=== PATIENT | female | born 1990 | race African-American/Black ===

== ENCOUNTER 2017-10-23 13:14 | Emergency (ER) ==
[2017-10-23 13:27] VITALS: BP 115/77; TEMP 97.7; BMI 23.8
--- NOTE | 2017-10-23 13:31 | ED.PDOC ---
General ED Provider: Dr. JOSSELYN SCHNEIDER Chief Complaint: Vaginal Bleeding Stated Complaint: VAGINAL BLEEDING Time Seen by Physician: 13:29 ( SEE WITH EVANS FROM LAB AT ALL TIMES ) Mode of Arrival: Walk-In Information Source: Patient Exam Limitations: No limitations Nursing and Triage Documentation Reviewed and Agree: Yes Reviewed sepsis parameters & appropriate labs ordered?: Yes System Inflammatory Response Syndrome: Not Applicable Sepsis Protocol: For patient's 13 years and over: Temp is 96.8 and below OR 101 and greater Pulse >90 BPM Resp >20/minute Acutely Altered Mental Status Are patient's symptoms suggestive of a new infection, such as: -Pneumonia -Skin, Soft Tissue -Endocarditis -UTI -Bone, Joint Infection -Implantable Device -Acute Abdominal Infection -Wound Infection -Meningitis -Blood Stream Catheter Infection -Unknown System Inflammatory Response Syndrome: Not Applicable Complaint Exam - UTI Female Complaint/Exam : 3 Para: 3 Hx Total # of Abortions (Spontaneous & Elective): 0 - Complaint/Exam Onset/Duration: NOTED SCANT AMOU NT OF BLEEDING TODAY AHOME PREG ON Sep POSTIVE Symptoms Are: Still present Timing: Intermittent Initial Severity: Mild Current Severity: None Location of Pain: Reports: None Aggravating: Reports: None Alleviating: Reports: None Associated Signs and Symptoms: Reports: Vaginal bleeding (SCANT ). Denies: Diaphoresis, Back pain, Fever, Hematuria, Dysuria, Constipation, Blood in stool , Rectal pain, Appetite change, Nausea, Vomiting, Decreased urine output, Increased urine frequency, Increased thirst, Decreased activity, Lethargy, Abdominal Pain, Bubble bath use, Vaginal discharge, Genital swelling, Genital blisters, Retained foreign body Ectopic Risk Factors: Reports: None Ovarian Torsion Risk Factors: Reports: None Surgical Obstruction Risk Factors: Reports: None RH Status: Unknown Related Surgical History: Reports: None Abdominal Findings: Present: None Review of Systems - Review Of Systems Constitutional: Reports: No symptoms Eyes: Reports: No symptoms Ears, Nose, Mouth, Throat: Reports: No symptoms Respiratory: Reports: No symptoms Cardiac: Reports: No symptoms GI: Reports: No symptoms : Reports: Other (VAGINAL BLEEDING) Musculoskeletal: Reports: No symptoms Skin: Reports: No symptoms Neurological: Reports: No symptoms Endocrine: Reports: No symptoms Hematologic/Lymphatic: Reports: No symptoms All Other Systems: Reviewed and Negative Past Medical History - Past Medical History Previously Healthy: Yes Endocrine: Reports: None Cardiovascular: Reports: None Respiratory: Reports: None Hematological: Reports: None Gastrointestinal: Reports: None Genitourinary: Reports: None Neuro/Psych: Reports: None Musculoskeletal: Reports: None Cancer: Reports: None Last Menstrual Period: 09/20/17 - Surgical History General Surgical History: Reports: None - Family History Family History: Reports: None - Social History Smoking Status: Never smoker Hx Substance Use: No Alcohol Screening: None Physical Exam - Physical Exam Appearance: Well-appearing, No pain distress, Well-nourished Eyes: ARYAN, EOMI, Conjunctiva clear ENT: Ears normal, Nose normal, Oropharynx normal Respiratory: Airway patent, Breath sounds clear, Breath sounds equal, Respirations nonlabored Cardiovascular: RRR, Pulses normal, No rub, No murmur GI/: Soft, Nontender, No masses, Bowel sounds normal, No Organomegaly Musculoskeletal: Normal strength, ROM intact, No edema, No calf tenderness Skin: Warm, Dry, Normal color Neurological: Sensation intact, Motor intact, Reflexes intact, Cranial nerves intact, Alert, Oriented Psychiatric: Affect appropriate, Mood appropriate Critical Care Note - Critical Care Note Total Time (mins): 0 Course - Course Hematology/Chemistry: 10/23/17 13:30 Orders, Labs, Meds: Lab Review 10/23/17 10/23/17 10/23/17 13:30 13:30 13:30 WBC 6.63 RBC 4.40 Hgb 12.9 Hct 38.6 MCV 87.7 MCH 29.3 MCHC 33.4 RDW Coeff of Michael 12.4 Plt Count 280 Immature Gran % (Auto) 0.2 Neut % (Auto) 56.6 Lymph % (Auto) 32.4 Roane % (Auto) 7.8 Eos % (Auto) 2.7 Baso % (Auto) 0.3 Immature Gran # (Auto) 0.0 Neut # (Auto) 3.8 Lymph # (Auto) 2.2 Roane # (Auto) 0.5 Eos # (Auto) 0.2 Baso # (Auto) 0.0 PT 10.1 INR 0.99 APTT 27.3 Serum , Qual Negative Orders Category Date Time Status CBC W/ AUTO DIFF Stat LAB 10/23/17 13:30 Completed PARTIAL THROMBOPLASTIN TIME Stat LAB 10/23/17 13:30 Completed PT WITH INR Stat LAB 10/23/17 13:30 Completed SERUM Stat LAB 10/23/17 13:30 Completed Vital Signs: Temp Pulse Resp BP Pulse Ox 10/23/17 13:16 97.7 F 86 16 115/77 99 Departure - Departure Time of Disposition: 14:10 Disposition: HOME SELF-CARE Discharge Problem: Bleeding from vagina, Dysfunctional uterine bleeding Instructions: Dysfunctional Uterine Bleeding (ED) Condition: Good Pt referred to PMD for follow-up: Yes IPMP verified?: No Additional Instructions: Please call your Family Physician as soon as possible to schedule a follow-up appointment. Allergies/Adverse Reactions: Allergies No Known Allergies Allergy (Unverified 10/23/17 13:19) Home Medications: Ambulatory Orders 1 [No Reported Medications] 10/23/17 Disposition Discussed With: Patient
== END 2017-10-23 14:24 | disposition home or self-care (01) ==
LOC: ED 13:14
DX: N93.8 Other specified abnormal uterine and vaginal bleeding (principal)
CPT/HCPCS: 36415; 84703; 85025; 85610; 85730; 99283

== ENCOUNTER 2018-04-22 16:49 | Emergency (ER) ==
[2018-04-22 16:55] VITALS: BP 117/75; TEMP 98.4; BMI 26.3
--- NOTE | 2018-04-22 18:06 | ED.PDOC ---
General ED Provider: Dr. CELI CADE Chief Complaint: Earache Stated Complaint: Lt ear ache and dental pain from cavity Time Seen by Physician: 17:30 Mode of Arrival: Walk-In Information Source: Patient Nursing and Triage Documentation Reviewed and Agree: Yes Does patient meet sepsis criteria?: No System Inflammatory Response Syndrome: Not Applicable Sepsis Protocol: For patient's 13 years and over: Temp is 96.8 and below OR 101 and greater Pulse >90 BPM Resp >20/minute Acutely Altered Mental Status Are patient's symptoms suggestive of a new infection, such as: -Pneumonia -Skin, Soft Tissue -Endocarditis -UTI -Bone, Joint Infection -Implantable Device -Acute Abdominal Infection -Wound Infection -Meningitis -Blood Stream Catheter Infection -Unknown EENT Complaint Exam - Ear Complaint/Exam Onset/Duration: 2 days Symptoms Are: Still present Timing: Constant Initial Severity: Moderate Current Severity: Moderate Character: Reports: Dull pain, Aching pain Aggravating: Reports: None Alleviating: Reports: None Associated Signs and Symptoms: Denies: Ear trauma, Ear swelling, Discharge, Fever, Hearing loss, Bleeding, Sore throat, Headache, URI symptoms, Foreign body sensation, Rash, Pain to external ear, Pain to external face Related History: Denies: Similar Episode Ear Surgical History: None Vesicles to External Pinna: No Vesicles to Tragus: No TMJ Tenderness: None Mastoid Tenderness: None Tragal Tenderness: None External Canal: Normal Material in Canal: Absent: Cerumen, Discharge, Blood, Foreign body Tympanic Membrane: Bulging, Dullness Differential Diagnoses: Serous Otitis - Dental/Oral Complaint/Exam Mechanism of Injury: No known trauma Onset/Duration: 12 week Symptoms Are: Still present Timing: Constant Initial Severity: Moderate Current Severity: Moderate Location: Lt Lower gum line Character: Reports: Aching, Throbbing Aggravating: Reports: Cold, Chewing Alleviating: Reports: None Associated Signs and Symptoms: Denies: Swelling, Discharge, Fever, Foul odor, Foul taste in mouth Related History: Reports: Similar episode Cardiac Risk Factors: Reports: None Tooth Findings: Present: Percussion tenderness, Gross decay, Gross caries, Abcess Cervical Lymphadenopathy Present: No Facial Swelling Present: No Bleeding Present: No Oropharynx Findings: Absent: Clots, Active bleeding Septal Hematoma: No Foreign Body Present: No Dysphagia Present: No Drooling Present: No Asymmetrical Tonsillar Swelling Present: No Uvula Midline: Yes Brittani-tonsillar Fluctuence: No Trismus Present: No Palatal Petechiae Present: No Scarlatinaform Rash Present: No Lesions: Absent: Lip, Gums, Tongue, Buccal Mucosa, Pharynx Exanthem: Absent: Lip, Gums, Tongue, Buccal Mucosa, Pharynx Vesicles: Absent: Lip, Gums, Tongue, Buccal Mucosa, Pharynx Differential Diagnoses: Dental Abcess, Dental Caries, Other (lt otitis media) Review of Systems - Review Of Systems Constitutional: Reports: No symptoms Eyes: Reports: No symptoms Ears, Nose, Mouth, Throat: Reports: No symptoms, Ear pain, Mouth pain Respiratory: Reports: No symptoms Cardiac: Reports: No symptoms GI: Reports: No symptoms : Reports: No symptoms Musculoskeletal: Reports: No symptoms Skin: Reports: No symptoms Neurological: Reports: No symptoms Endocrine: Reports: No symptoms Hematologic/Lymphatic: Reports: No symptoms All Other Systems: Reviewed and Negative Past Medical History - Past Medical History Previously Healthy: Yes Endocrine: Reports: None Cardiovascular: Reports: None Respiratory: Reports: None Hematological: Reports: None Gastrointestinal: Reports: None Genitourinary: Reports: None Neuro/Psych: Reports: None Musculoskeletal: Reports: None Cancer: Reports: None Last Menstrual Period: 04/11/18 - Surgical History General Surgical History: Reports: None - Family History Family History: Reports: None - Social History Smoking Status: Never smoker Hx Substance Use: No Alcohol Screening: None Physical Exam - Physical Exam Appearance: Well-appearing, No pain distress, Well-nourished Eyes: ARYAN, EOMI, Conjunctiva clear ENT: Nose normal, Oropharynx normal, Erythema (lt eac and TM) Respiratory: Airway patent, Breath sounds clear, Breath sounds equal, Respirations nonlabored Cardiovascular: RRR, Pulses normal, No rub, No murmur GI/: Soft, Nontender, No masses, Bowel sounds normal, No Organomegaly Musculoskeletal: Normal strength, ROM intact, No edema, No calf tenderness Skin: Warm, Dry, Normal color Neurological: Sensation intact, Motor intact, Reflexes intact, Cranial nerves intact, Alert, Oriented Psychiatric: Affect appropriate, Mood appropriate Critical Care Note - Critical Care Note Total Time (mins): 0 Course - Course Vital Signs: Temp Pulse Resp BP Pulse Ox 04/22/18 16:50 98.4 F 89 20 117/75 98 Departure - Departure Time of Disposition: 18:05 Disposition: HOME SELF-CARE Discharge Problem: Dental cavities, Pain due to dental caries Otitis Qualifiers: Laterality: right Qualified Code(s): H66.91 - Otitis media, unspecified, right ear Instructions: Toothache (ED), Serous Otitis Media (ED) Condition: Good Pt referred to PMD for follow-up: Yes (Seek dental care-[facility] ) IPMP verified?: No Additional Instructions: Take meds Rinse mouth with warm salt water Take Tylenol 2 and alternate with Ibuprofen to reduce pain Prescriptions: Amoxicillin/Potassium Clav [Amox Tr-K Clv 875-125 mg Tab] 1 each PO BID #20 tablet Allergies/Adverse Reactions: Allergies No Known Allergies Allergy (Verified 04/22/18 16:55) Home Medications: Ambulatory Orders Amoxicillin/Potassium Clav [Amox Tr-K Clv 875-125 mg Tab] 1 each PO BID #20 tablet 04/22/18 Disposition Discussed With: Patient
== END 2018-04-22 18:15 | disposition home or self-care (01) ==
LOC: ED 16:49
DX: H66.91 Otitis media, unspecified, right ear (principal); K02.7 Dental root caries; K08.89 Other specified disorders of teeth and supporting structures
CPT/HCPCS: 99282

== ENCOUNTER 2019-01-04 01:16 | Emergency (ER) ==
[2019-01-04 01:24] VITALS: BP 115/78; TEMP 98; BMI 28.7
--- NOTE | 2019-01-04 01:38 | ED.PDOC ---
General ED Provider: Dr. BARBARA WYMAN Chief Complaint: Tooth Problem Stated Complaint: One day history of left lower molar dental pain. she is 25 weeks . Time Seen by Physician: 01:34 Mode of Arrival: Walk-In Information Source: Patient Exam Limitations: No limitations Primary Care Provider: GIOVANNI NG Nursing and Triage Documentation Reviewed and Agree: Yes Does patient meet sepsis criteria?: No System Inflammatory Response Syndrome: Not Applicable Sepsis Protocol: For patient's 13 years and over: Temp is 96.8 and below OR 101 and greater Pulse >90 BPM Resp >20/minute Acutely Altered Mental Status Are patient's symptoms suggestive of a new infection, such as: -Pneumonia -Skin, Soft Tissue -Endocarditis -UTI -Bone, Joint Infection -Implantable Device -Acute Abdominal Infection -Wound Infection -Meningitis -Blood Stream Catheter Infection -Unknown EENT Complaint Exam - Dental/Oral Complaint/Exam Mechanism of Injury: No known trauma Onset/Duration: 1 day Symptoms Are: Still present Timing: Constant Initial Severity: Moderate Current Severity: Severe Location: Left lower molar Character: Reports: Aching, Throbbing Aggravating: Reports: Heat, Cold, Chewing Alleviating: Reports: None Associated Signs and Symptoms: Reports: Swelling, Foul odor, Foul taste in mouth Related History: Reports: Third molars present. Denies: Similar episode, Valvular heart disease, TMJ disfunction, Previous tooth problem, Third molars absent Cardiac Risk Factors: Reports: None Dental/Oral Surgical History: Reports: None Tooth Findings: Present: Percussion tenderness, Gross decay, Gross caries, Abcess Cervical Lymphadenopathy Present: Yes (left ) Facial Swelling Present: Yes (mild ) Bleeding Present: No Oropharynx Findings: Absent: Clots, Active bleeding Septal Hematoma: No Foreign Body Present: No Dysphagia Present: No Drooling Present: No Asymmetrical Tonsillar Swelling Present: No Uvula Midline: No Brittani-tonsillar Fluctuence: No Trismus Present: No Palatal Petechiae Present: No Scarlatinaform Rash Present: No Lesions: Absent: Lip, Gums, Tongue, Buccal Mucosa, Pharynx Exanthem: Absent: Lip, Gums, Tongue, Buccal Mucosa, Pharynx Vesicles: Absent: Lip, Gums, Tongue, Buccal Mucosa, Pharynx Teeth Picture: 1 - gross decay with tenderness to palpation Differential Diagnoses: Dental Abcess, Dental Caries Review of Systems - Review Of Systems Constitutional: Reports: No symptoms Eyes: Reports: No symptoms Ears, Nose, Mouth, Throat: Reports: Mouth pain Respiratory: Reports: No symptoms Cardiac: Reports: No symptoms GI: Reports: No symptoms : Reports: No symptoms Musculoskeletal: Reports: No symptoms Skin: Reports: No symptoms Neurological: Reports: No symptoms Endocrine: Reports: No symptoms Hematologic/Lymphatic: Reports: No symptoms All Other Systems: Reviewed and Negative Past Medical History - Past Medical History Previously Healthy: Yes Endocrine: Reports: None Cardiovascular: Reports: None Respiratory: Reports: None Hematological: Reports: None Gastrointestinal: Reports: None Genitourinary: Reports: None Neuro/Psych: Reports: None Musculoskeletal: Reports: None Cancer: Reports: None Last Menstrual Period: june, - Surgical History General Surgical History: Reports: None - Family History Family History: Reports: None - Social History Smoking Status: Never smoker Hx Substance Use: No Alcohol Screening: None - Immunizations Tetanus Shot up to Date: Yes Physical Exam - Physical Exam Appearance: Ill-appearing Ill-appearing: Moderate Pain Distress: Severe Eyes: ARYAN, EOMI, Conjunctiva clear ENT: Nose normal Neck: Supple Respiratory: Airway patent, Breath sounds clear, Breath sounds equal, Respirations nonlabored Cardiovascular: RRR, Pulses normal, No rub, No murmur Skin: Warm Critical Care Note - Critical Care Note Total Time (mins): 0 Course - Course Vital Signs: Temp Pulse Resp BP Pulse Ox 01/04/19 01:17 98 F 96 H 20 115/78 98 Departure - Departure Time of Disposition: 02:10 Disposition: HOME SELF-CARE Discharge Problem: Toothache, Dental caries Instructions: Dental Abscess (ED), Toothache (ED) Condition: Fair Pt referred to PMD for follow-up: Yes IPMP verified?: No Additional Instructions: Take medications as prescribed Follow up with Your dentist in 3 days take Tylenol as needed for pain and Hydrocodone as needed for severe pain Prescriptions: Hydrocodone Bit/Acetaminophen [Rhame 5-325] 0.5 each PO Q6HR PRN #10 tablet PRN Reason: severe pain Amoxicillin [Amoxil] 500 mg PO TID #30 capsule Allergies/Adverse Reactions: Allergies No Known Allergies Allergy (Verified 01/04/19 01:23) Home Medications: Ambulatory Orders Amoxicillin [Amoxil] 500 mg PO TID #30 capsule 01/04/19 Hydrocodone Bit/Acetaminophen [Rhame 5-325] 0.5 each PO Q6HR PRN #10 tablet Pnv No.95/Ferrous Fum/Folic AC [ Caplet] 1 each PO DAILY 01/04/19 Disposition Discussed With: Patient, Family
[2019-01-04] MEDS ORDERED: ED AFTER HOURS SUPPLY MED SENT HOME PO ONE (01:40)
[2019-01-04] MEDS ORDERED: AMOXIL PO STA (01:40)
[2019-01-04] MEDS ORDERED: NORCO 5-325 ONE (01:48)
== END 2019-01-04 02:00 | disposition home or self-care (01) ==
LOC: ED 01:16
DX: K08.89 Other specified disorders of teeth and supporting structures (principal); K02.7 Dental root caries; Z33.1 Pregnant state, incidental
CPT/HCPCS: 99282